=== PATIENT | male | born 1995 | race Caucasian/White ===

== ENCOUNTER 2018-04-12 22:18 | Emergency (ER) | payer SELFPAY ==
[~2018-04-12] VITALS: Ht 180.3 cm; Wt 61.4 kg
[~2018-04-12 22:18] MED LIST: AMOXICILLIN 50500 MG PO; NO HOME MEDICATIONS; ULTRAM 50MG TAB50 MG PO
[2018-04-12 22:22] VITALS: TEMP 98.3
[2018-04-12 23:43] VITALS: BP 114/68; PULSE 57
== END 2018-04-12 23:55 | disposition home or self-care (01) ==
LOC: COL.ER 22:18
DX: R07.89 Other chest pain (principal); F41.9 Anxiety disorder, unspecified; F32.9 Major depressive disorder, single episode, unspecified; Z98.890 Other specified postprocedural states; Z91.14 Patient's other noncompliance with medication regimen
CPT/HCPCS: J1885

== ENCOUNTER 2018-11-17 17:05 | Emergency (ER) | payer SELFPAY ==
[~2018-11-17] VITALS: Ht 177.8 cm; Wt 59.1 kg
[2018-11-17 17:13] VITALS: BP 125/69; TEMP 99.3
[2018-11-17 17:36] LABS: BASO % 0.3 % (0.0-2.0); EOS # 0.2 (0.0-0.7); EOS % 1.6 % (0-4.0); GRAN # 8.3 (1.4-6.5); GRAN % 71.4 % (42.2-75.2); HEMATOCRIT 45.7 % (42.0-52.0); HEMOGLOBIN 15.4 g/dl (13.5-18.0); LYMPH # 2.2 (1.2-3.4); LYMPH % 19.2 % (20.0-51.0); MEAN CELL VOLUME 90 fl (80.0-100.0); MEAN CORPUSCULAR HEMOGLOBIN 30 pg (27.0-31.0); MEAN CORPUSCULAR HGB CONC 34 g/dl (33.0-37.0); MEAN PLATELET VOLUME 10.1 fl (7.4-10.4); MONO # 0.8 (0.1-0.6); MONO % 7.1 % (1.7-9.3); PLATELET COUNT 235 K/mm3 (130-400); RED BLOOD COUNT 5.06 M/mm3 (4.20-5.60)
[2018-11-17 17:46] LABS: ALBUMIN 4.4 gm/dL (3.5-5.0); BILIRUBIN,TOTAL 0.4 mg/dL (0.0-1.0); CALCIUM 9.6 mg/dL (8.4-10.2); CREATININE, serum 0.75 (0.66-1.25); POTASSIUM 4.2 mmol/L (3.4-5.0); TOTAL PROTEIN 7.7 gm/dL (6.4-8.2)
[2018-11-17] MEDS ORDERED: STOOL SOFTENER100 M2 PO (17:52)
[2018-11-17] MEDS ORDERED: ZYPREXA15 MG PO (17:52)
[2018-11-17 18:27] LABS: COLLECTION METHOD CLEAN CATCH
[2018-11-17 18:36] LABS: PH 8 (5-8); SQUAMOUS EPITHELIAL None Seen /hpf; URINE APPEARANCE Clear; URINE BACTERIA None Seen /hpf; URINE BILIRUBIN Negative (NEGATIVE); URINE BLOOD Negative (NEGATIVE); URINE COLOR Straw; URINE GLUCOSE Negative (NEGATIVE); URINE KETONE Negative (NEGATIVE); URINE LEUKOCYTE ESTERASE Negative (NEGATIVE); URINE NITRATE Negative (NEGATIVE); URINE PROTEIN(semi-quant) Negative (NEGATIVE); URINE RBC None Seen /hpf; URINE UROBILINOGEN Negative (NEGATIVE)
[2018-11-17] MEDS ORDERED: CONSTULOSE 20G/30ML PO (21:34)
[2018-11-17 21:45] VITALS: PULSE 96
== END 2018-11-17 21:49 | disposition home or self-care (01) ==
LOC: COL.ER 17:05
PROVIDERS: Emergency Medicine
DX: K59.00 Constipation, unspecified (principal); F20.9 Schizophrenia, unspecified
CPT/HCPCS: J2405; J3010; J7030; Q9967

== ENCOUNTER 2019-02-07 23:40 | Emergency (ER) | payer MEDICAID ==
[~2019-02-07] VITALS: Ht 180.3 cm; Wt 61.4 kg
[~2019-02-07 23:40] MED LIST changes: +CONSTULOSE 20G/30ML PO; +STOOL SOFTENER100 M2 PO; +ZYPREXA15 MG PO
[2019-02-07 23:45] VITALS: BP 125/75; TEMP 98.6
[2019-02-08 00:34] LABS: BASO % 0.4 % (0.0-2.0); EOS # 0.4 (0.0-0.7); EOS % 3.3 % (0-4.0); GRAN # 6.3 (1.4-6.5); GRAN % 58.3 % (42.2-75.2); HEMATOCRIT 48.2 % (42.0-52.0); HEMOGLOBIN 16.2 g/dl (13.5-18.0); LYMPH # 3.2 (1.2-3.4); LYMPH % 30.1 % (20.0-51.0); MEAN CELL VOLUME 90 fl (80.0-100.0); MEAN CORPUSCULAR HEMOGLOBIN 30 pg (27.0-31.0); MEAN CORPUSCULAR HGB CONC 34 g/dl (33.0-37.0); MEAN PLATELET VOLUME 9.7 fl (7.4-10.4); MONO # 0.8 (0.1-0.6); MONO % 7.5 % (1.7-9.3); PLATELET COUNT 248 K/mm3 (130-400); RED BLOOD COUNT 5.36 M/mm3 (4.20-5.60); REDCELL DISTRIBUTION WIDTH-CV 12.4 % (11.5-14.5)
[2019-02-08 00:42] LABS: PROTHROMBIN TIME 11.9 SECONDS (9.7-12.8)
[2019-02-08 00:44] LABS: PARTIAL THROMBOPLASTIN TIME 29.7 SECONDS (26.0-37.0)
[2019-02-08 00:45] LABS: ALANINE AMINOTRANSFERASE 150 U/L (21-72); ALBUMIN 4.6 gm/dL (3.5-5.0); ALKALINE PHOSPHATASE 65 U/L (50-136); ANION GAP 12 mmol/L (7-16); AST,SGOT 35 U/L (15-37); BILIRUBIN,TOTAL 0.3 mg/dL (0.0-1.0); BLOOD UREA NITROGEN 13 mg/dL (9-20); CALCIUM 9.4 mg/dL (8.4-10.2); CARBON DIOXIDE 28 mmol/L (22-30); CHLORIDE 102 mmol/L (98-107); CREATININE, serum 0.94 (0.66-1.25); GLUCOSE 87 mg/dL (74-106); SODIUM 142 mmol/L (137-145)
[2019-02-08 00:52] LABS: D-DIMER < 200.00 ng/mLDDu (200-230)
[2019-02-08 01:00] LABS: TROPONIN-I < 0.012 ng/mL (0.000-0.035)
[2019-02-08 02:46] VITALS: PULSE 87
== END 2019-02-08 02:46 | disposition home or self-care (01) ==
LOC: COL.ER 23:40
PROVIDERS: Physician Assistant
DX: I30.9 Acute pericarditis, unspecified (principal); F17.210 Nicotine dependence, cigarettes, uncomplicated
CPT/HCPCS: J1885

== ENCOUNTER 2019-07-29 16:41 | Emergency (ER) | payer MEDICAID ==
[~2019-07-29] VITALS: Ht 180.3 cm; Wt 86.4 kg
[2019-07-29 16:53] VITALS: BP 121/76; TEMP 97.7
[2019-07-29] MEDS ORDERED: ILOTYCIN5 MG/GM OP (17:51)
[2019-07-29 18:02] VITALS: PULSE 94
== END 2019-07-29 18:00 | disposition home or self-care (01) ==
LOC: COL.ER 16:41
DX: S05.01XA Injury of conjunctiva and corneal abrasion without foreign body, right eye, initial encounter (principal); F20.9 Schizophrenia, unspecified; F17.210 Nicotine dependence, cigarettes, uncomplicated

== ENCOUNTER 2021-07-02 04:15 | Emergency (ER) | payer SELFPAY ==
[~2021-07-02] VITALS: Ht 177.8 cm; Wt 77.3 kg
[~2021-07-02 04:15] MED LIST changes: +ILOTYCIN5 MG/GM OP
[2021-07-02] MEDS ORDERED: FLEXERIL 1010 MG/TAB PO (04:31)
[2021-07-02] MEDS ORDERED: NAPROSYN500 MG PO (04:31)
[2021-07-02 04:53] VITALS: BP 124/81; PULSE 988; TEMP 98.3
== END 2021-07-02 04:53 | disposition home or self-care (01) ==
LOC: COL.ER 04:15
DX: S39.92XA Unspecified injury of lower back, initial encounter (principal); F32.A Depression, unspecified; Z79.899 Other long term (current) drug therapy; F17.210 Nicotine dependence, cigarettes, uncomplicated; X50.0XXA Overexertion from strenuous movement or load, initial encounter; Y92.59 Other trade areas as the place of occurrence of the external cause; Y99.0 Civilian activity done for income or pay

== ENCOUNTER 2021-10-15 21:23 | Emergency (ER) | payer SELFPAY ==
[~2021-10-15] VITALS: Ht 177.8 cm; Wt 77.3 kg
[~2021-10-15 21:23] MED LIST changes: +FLEXERIL 1010 MG/TAB PO; +NAPROSYN500 MG PO
[2021-10-15 21:32] VITALS: BP 113/72; TEMP 97.8
[2021-10-15 23:05] VITALS: PULSE 75
== END 2021-10-15 23:05 | disposition home or self-care (01) ==
LOC: COL.ER 21:23
DX: M25.511 Pain in right shoulder (principal); F17.200 Nicotine dependence, unspecified, uncomplicated; X50.1XXA Overexertion from prolonged static or awkward postures, initial encounter
CPT/HCPCS: J1885

== ENCOUNTER 2022-09-08 13:36 | Emergency (ER) | payer MEDICAID ==
[~2022-09-08] VITALS: Ht 177.8 cm; Wt 80.9 kg
[2022-09-08 14:00] VITALS: TEMP 98.4
[2022-09-08] MEDS ORDERED: OCUFLOX OPHTH DR5 ML OS (17:33)
[2022-09-08] MEDS ORDERED: FLOXIN OTIC DROP5 ML OT (17:33)
[2022-09-08] MEDS ORDERED: AKTOB 5 ML5 ML OS (17:35)
[2022-09-08 17:56] VITALS: BP 111/72; PULSE 99
== END 2022-09-08 17:56 | disposition home or self-care (01) ==
LOC: COL.ER 13:36
DX: H10.9 Unspecified conjunctivitis (principal); H72.92 Unspecified perforation of tympanic membrane, left ear; F17.200 Nicotine dependence, unspecified, uncomplicated

== ENCOUNTER 2024-02-15 20:24 | Emergency (ER) | payer MEDICAID ==
[~2024-02-15] VITALS: Ht 177.8 cm; Wt 88.2 kg
[~2024-02-15 20:24] MED LIST changes: +AKTOB 5 ML5 ML OS; +FLOXIN OTIC DROP5 ML OT; +OCUFLOX OPHTH DR5 ML OS
[2024-02-15 20:34] VITALS: TEMP 98.4
[2024-02-15 21:54] VITALS: BP 116/78; PULSE 117
== END 2024-02-15 21:57 | disposition home or self-care (01) ==
LOC: COL.ER 20:24
DX: F06.4 Anxiety disorder due to known physiological condition (principal); F17.210 Nicotine dependence, cigarettes, uncomplicated